=== PATIENT | male | born 1980 | race Caucasian/White ===

== ENCOUNTER 2019-02-11 17:17 | Emergency (ER) | payer OTHER ==
[2019-02-11 17:25] VITALS: BP 138/81
[2019-02-11] MEDS ORDERED: IBUPROFEN 800 MG TABLET PO STA (17:59)
--- NOTE | 2019-02-11 18:01 | ED Physician Documentation ---
PD HPI HEENT - Stated complaint Stated Complaint: FEVER/SORE THROAT - Chief complaint Chief Complaint: Heent - History obtained from History obtained from: Patient - History of Present Illness Timing - onset: Today Timing - details: Still present Location: Throat Associated symptoms: Fever, Headache Similar symptoms before: Diagnosis (Strep throat about six months ago.) - Additional information Additional information: The patient is a 38-year-old [employer] male who presents with sore throat that started this morning and has persisted throughout the day. He complains of fever to 101.4 degrees, and headache. He denies cough, abdominal pain, nausea or vomiting. He reports history of similar but more severe symptoms with strep throat about 6 months ago. Review of Systems Constitutional: reports: Fever, Myalgias Eyes: denies: Irritation Ears: denies: Ear pain Nose: denies: Congestion Throat: reports: Sore throat Cardiac: denies: Chest pain / pressure Respiratory: denies: Dyspnea, Cough GI: denies: Abdominal Pain, Nausea, Vomiting Skin: denies: Rash Musculoskeletal: denies: Extremity pain Neurologic: reports: Headache PD PAST MEDICAL HISTORY - Past Medical History Past Medical History: No Endocrine/Autoimmune: None - Past Surgical History Past Surgical History: Yes General: Appendectomy, Hiatal hernia repair HEENT: Other - Present Medications Home Medications: Ambulatory Orders Medication Instructions Recorded Confirmed No Known Home Medications 02/11/19 02/11/19 - Allergies Allergies/Adverse Reactions: Allergies Allergy/AdvReac Type Severity Reaction Status Date / Time No Known Drug Allergies Allergy Verified 02/11/19 17:25 - Social History Does the pt smoke?: No Smoking Status: Never smoker Does the pt drink ETOH?: No Does the pt have substance abuse?: No - Immunizations Immunizations are current?: Yes - POLST Patient has POLST: No PD ED PE NORMAL - Vitals Vital signs reviewed: Yes (Febrile at 38.1 degrees.) - General General: Alert and oriented X 3, Well developed/nourished - HEENT HEENT: EOMI, Ears normal, Other (Oropharynx is diffusely erythematous, without exudates and without peritonsillar swelling.) - Neck Neck: Supple, no meningeal sign, Other (Mildly enlarged anterior cervical nodes bilaterally.) - Cardiac Cardiac: RRR, No murmur - Respiratory Respiratory: No respiratory distress, Clear bilaterally - Abdomen Abdomen: Soft, Non tender - Derm Derm: No rash - Neuro Neuro: Alert and oriented X 3, No motor deficit, Normal speech Results - Vitals Vitals: Oxygen O2 Source Room air - Labs Labs: Microbiology 02/11/19 17:27 Group A Strep Throat Culture - Final Throat MIXED OROPHARYNGEAL TRAVIS PRESENT. NO BETA STREP PRESENT IN CULTURE. Laboratory Tests 02/11/19 17:27 Group A Strep Rapid Negative PD MEDICAL DECISION MAKING - ED course Complexity details: reviewed results, considered differential, d/w patient ED course: Patient's presentation is most consistent with acute viral pharyngitis. Rapid strep screen is negative. Throat culture is pending. There is no clinical evidence of peritonsillar abscess. Treatment in the emergency department included administration of ibuprofen 800 mg orally. I discussed with him the expected course of illness, symptomatic treatment and outpatient follow-up, as well as potentially worrisome signs or symptoms that should prompt reevaluation in the emergency department. Departure - Departure Disposition: 01 Home, Self Care Clinical Impression: Acute viral pharyngitis Condition: Stable Instructions: ED Pharyngitis Viral Follow-Up: NIKKI Hinton [Provider Group] Comments: Gargle with cool liquids. You can use ibuprofen, up to 800 mg 3 times daily if needed for fever or discomfort. Follow-up with your primary physician within 1 week. Call to schedule appointment. Return to the emergency department if you develop increasing difficulty swallowing, or otherwise worsening symptoms. Discharge Date/Time: 02/11/19 18:08
== END 2019-02-11 18:08 | disposition home or self-care (01) ==
LOC: ED 17:17
DX: J02.8 Acute pharyngitis due to other specified organisms (principal); B97.89 Other viral agents as the cause of diseases classified elsewhere
CPT/HCPCS: 87070; 87430; 99283; A9270

== ENCOUNTER 2024-03-25 13:11 | Outpatient (CLI) | payer OTHER ==
--- NOTE | 2024-03-28 13:46 | MRI Report ---
PROCEDURE: Knee RT WO INDICATIONS: R KNEE PAIN TECHNIQUE: Noncontrast sagittal PD fast spin echo and T2 fast spin echo with fat saturation, sagittal 3-D spoile d GE with fat saturation; coronal T1 spin echo and PD fast spin echo with fat saturation, and axial P D fast spin echo with fat saturation through the knee. COMPARISON: None. FINDINGS: Image quality: Excellent. Anterior cruciate ligament: Postsurgical changes are seen from prior anterior cruciate ligament thang nstruction. The femoral tunnel is located at the 10-11 o'clock position in the intercondylar notch wi th the orifice approximately 7 mm from the intersection of the posterior femoral cortex with Blumensa at's line. The tibial tunnel is located in the anterior to middle thirds of the central tibial platea u. There is narrowing of the anterior cruciate ligament graft near the tibial insertion that may bala anoop partial tearing. Some of the graft fibers remain in continuity. The roof of the intercondylar no tch abuts the ligament in this location. In mediastinal intensity material is seen in the anterior in tercondylar notch measuring approximately 16 x 9 x 8 mm, which may represent displaced ligament graft fibers or arthrofibrosis. Cystic changes are seen within the tibial tunnel with widening of the gonzales lla measuring approximately 16 x 14 mm in diameter. Similar findings are seen in the femoral tunnel m easuring approximately 13 x 15 mm in diameter. Posterior cruciate ligament: Intact. Medial collateral ligament: Thickening the proximal medial collateral ligament without surrounding e quirino is most likely secondary to a remote prior low-grade sprain. Lateral collateral ligament: Intact. Medial meniscus: Mildly diminutive appearance of the medial meniscus may be secondary to a remote pr ior partial meniscectomy. No uptake of agdaagux joint fluid is seen to suggest recurrent tearing. There is minimal extrusion of the meniscal body beyond the femorotibial joint line. Lateral meniscus: Diminutive and mildly irregular appearance of the posterior horn of the lateral me niscus may be secondary to prior postsurgical changes or chronic tearing. Medial and lateral tendons: The semimembranosus tendon insertions appear intact. Visualized portion s of the pes anserinus tendons appear normal. The popliteus tendon appears intact. Iliotibial band appears normal. Anterior structures: The patellar tendon and the distal quadriceps tendon appear intact. No patellar subluxation. No femoral trochlear dysplasia or ventral trochlear prominence. Mild scarring is seen in the infrapatellar fat pad.. Bones: No acute trabecular bone injury or fracture. Medial femorotibial cartilage: Moderate partial thickness cartilage thinning and irregularity in the weightbearing portion of the medial femorotibial compartment with small marginal osteophytes. Lateral femorotibial cartilage: High-grade partial thickness cartilage irregularity at the posterior weightbearing portion of the lateral femoral condyle with subchondral cystic changes and edema. Deep cartilage fissuring is seen in the adjacent lateral tibial plateau. Patellofemoral cartilage: No focal cartilage defect. Soft tissues: Small joint effusion. Possible intra-articular loose body versus displaced meniscal fl ap along the medial femoral gutter measuring approximately 8 x 4 x 8 mm. There is a trace medial pop liteal cyst. Ganglion cyst is seen adjacent to the origin of the medial head of the gastrocnemius mus natali measuring up to 23 x 21 x 28 mm. The musculature surrounding the knee is normal in bulk. IMPRESSION: 1.Postsurgical changes from anterior cruciate ligament reconstruction with tunnel positioning as desc ribed in the body of the report. There is mild widening of the tibial and femoral tunnels. Suspected partial thickness tearing of the ligament graft near the tibial insertion with possible impingement. Some ligament graft fibers remain intact. Small amount of intermediate intensity material anterior to the intercondylar notch may represent displaced ligament graft fibers or focal arthrofibrosis. 2.Remote prior low-grade sprain of the proximal medial collateral ligament. 3.Prior partial medial meniscectomy. No recurrent medial meniscal tearing. 4.Diminutive and mildly irregular appearance of the posterior horn of the lateral meniscus may be sec ondary to partial meniscectomy or chronic tearing. 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 Focal grade III chondromalacia in the posterior weightbearing portion of the lateral femorotibial co mpartment with subchondral edema. 6.Small joint effusion. Suspected 8 mm intra-articular loose body medial to the medial femoral condyl e. Ganglion cyst adjacent to the origin of the medial head of the gastrocnemius muscle measures up to 20 mm in maximum dimension. Reviewed by: Juventino Knott MD on 03/28/2024 1:45 PM PDT Approved by: Juventino Knott MD on 03/28/2024 1:45 PM PDT Station ID: [id number]
== END 2024-03-25 13:12 | disposition home or self-care (01) ==
LOC: DI 13:11
DX: M25.561 Pain in right knee (principal); M94.261 Chondromalacia, right knee